=== PATIENT | female | born 1980 | race Two or more races ===

== ENCOUNTER 2017-01-26 23:10 | Observation (INO) | payer SELFPAY ==
[2014-11-11 12:30] VITALS: BP 128/76
[~2017-01-26 23:10] MED LIST: ACET-704 PO; IBUP-1060 PO
[2017-01-26] MEDS ORDERED: hydrOXYzine PAMOATE 25 MG CAPSULE PO PRN (23:45)
[2017-01-26] MEDS ORDERED: IV RINGERS,LACTATED 1000ML 1,000 ML IV SCH (23:45)
[2017-01-26 23:58] LABS: BILIRUBIN,URINE NEGATIVE (NEG); GLUCOSE,URINE NEGATIVE (NEG); NITRITE,URINE NEGATIVE (NEG); PH,URINE 6.5; PROTEIN,URINE NEGATIVE (NEG-TRACE)
[2017-01-27 00:04] LABS: BARBITURATES NEG (NEG); BENZODIAZEPINES NEG (NEG); CANNABINOIDS NEG (NEG); COCAINE NEG (NEG); METHADONE NEG (NEG); OPIATES NEG (NEG); PHENCYCLIDINE NEG (NEG)
[2017-01-27 00:05] LABS: BACTERIA,URINE FEW /HPF (0-FEW); RBC,URINE OCC /HPF (0-2)
[2017-01-27 00:06] LABS: SQUAMOUS EPITHELIAL CELL,UR FEW /LPF
--- NOTE | 2017-01-27 01:09 | RAD ---
OB ULTRASOUND, > 14 WEEKS , LIMITED Clinical Indication: ABD PAIN, NO CARE, PT UNSURE OF LAST PERIOD, PT SPEAKS LITTLE OCCITAN, PT THINKS SHE MIGHT BE 8 MONTHS PREG Comparison: None. Technique: Multiple grayscale images, color Doppler, and M-mode images of the uterus are obtained. Findings: There is a single intrauterine gestation in vertex presentation. The placenta is anterior in location without evidence of placenta previa. The amount of amniotic fluid appears appropriate. Amniotic fluid index is 9.4 cm. Cervix not visualized. Biometrical data: BPD = 8.6 cm for 34 weeks 6 days. HC = 32 cm for 36 weeks 1 days. AC = 32.4 cm for 36 weeks 2 days. FL = 7.1 cm for 36 weeks 3 days. HC/AC ratio = 0.99. Overall, the estimated sonographic gestational age is 36 weeks and 0 days for an estimated date of delivery of February 24, 2017. Estimated weight is 2861 +/- 423 grams. A 4 chamber heart is identified with positive cardiac activity. The estimated heart rate is 165 beats per minute. A complete anatomic survey is not performed due to advanced gestational age. There is fluid in the bladder and stomach. No obvious abnormality of the kidneys. IMPRESSION: Single live intrauterine with estimated sonographic gestational age of 36 weeks and 0 days. Electronically signed by: Eran Jack MD (01/27/2017 1:06 AM) [id number]
[2017-01-27 01:49] LABS: BASO % 1 % (0-3); EOS % 1 % (0-3); HEMATOCRIT 31.1 % (36.0-47.0); HEMOGLOBIN 9.8 g/dL (12.0-15.5); LYMPH % 22 % (24-48); MEAN CORPUSCULAR HEMOGLOBIN 25 pg (25-35); MEAN CORPUSCULAR HGB CONC 32 g/dL (31-37); MEAN CORPUSCULAR VOLUME 80 fL (79-100); MONO % 7 % (0-9); NEUT % 70 % (31-73); PLATELET COUNT 212 x10^3/uL (140-400); RED BLOOD COUNT 3.89 x10^6/uL (3.50-5.40); WHITE BLOOD COUNT 9.4 x10^3/uL (4.0-11.0)
[2017-01-28 06:18] LABS: RPR REFLEX Non Reactive (Non Reactive)
== END 2017-01-27 11:00 | disposition home or self-care (01) ==
LOC: 3 SO LND 23:10
PROVIDERS: ADMIT Specialist; ATTEND Specialist
DX: O26.893 Other specified pregnancy related conditions, third trimester (principal); R10.30 Lower abdominal pain, unspecified; Z3A.36 36 weeks gestation of pregnancy
CPT/HCPCS: 36415; 76815; 81001; 85027; 86593; 86703; 86762; 86850; 86900; 86901; 87086; 87340; 87341; C1887; G0378; G0379; G0481; Q0177